=== PATIENT | female | born 1950 | race Caucasian/White ===

== ENCOUNTER 2019-07-02 13:52 | Emergency (ER) | payer OTHER, MEDICARE ==
[~2019-07-02] VITALS: Ht 161.3 cm; Wt 68.2 kg
[~2019-07-02 13:52] MED LIST: CALC-674 PO; CELE-193 PO; ERGO400C PO; FRONT WHEELED WALKER; LORA1TAB PO; MULT-1179 PO; NORCO10T PO; PREG75CA30 PO; SUMA25TA35 PO; TIZA4CAP6 PO; TRAZ50TA54 PO; VITC500T PO; ZOC40T PO
[2019-07-02] MEDS ORDERED: ketorolac tromethamine 15mg/ml inj. IM ONE (15:35)
[2019-07-02] MEDS ORDERED: METH-360 PO (15:37)
[2019-07-02 16:02] VITALS: BP 115/76
== END 2019-07-02 16:04 | disposition home or self-care (01) ==
LOC: ER 13:53
DX: S16.1XXA Strain of muscle, fascia and tendon at neck level, initial encounter (principal); S29.012A Strain of muscle and tendon of back wall of thorax, initial encounter; G89.29 Other chronic pain; Z71.1 Person with feared health complaint in whom no diagnosis is made; Z90.710 Acquired absence of both cervix and uterus; Z79.899 Other long term (current) drug therapy; V49.88XA Car occupant (driver) (passenger) injured in other specified transport accidents, initial encounter; Y93.89 Activity, other specified; Y92.89 Other specified places as the place of occurrence of the external cause; Y99.9 Unspecified external cause status
CPT/HCPCS: 72040; 72070; 96372; 99283; J1885

== ENCOUNTER 2021-01-16 11:34 | Emergency (ER) | payer MEDICARE, MEDICAID ==
[~2021-01-16] VITALS: Ht 157.5 cm; Wt 70.9 kg
[~2021-01-16 11:34] MED LIST changes: +METH-360 PO
[2021-01-16 12:34] VITALS: BP 110/69
[2021-01-16] MEDS ORDERED: ketorolac tromethamine 15mg/ml inj. IV ONE (13:20)
== END 2021-01-16 14:30 | disposition home or self-care (01) ==
LOC: ER 11:34
DX: S80.02XA Contusion of left knee, initial encounter (principal); M25.562 Pain in left knee; G89.29 Other chronic pain; Z87.11 Personal history of peptic ulcer disease; Z90.710 Acquired absence of both cervix and uterus; Z98.890 Other specified postprocedural states; Z79.899 Other long term (current) drug therapy; W18.40XA Slipping, tripping and stumbling without falling, unspecified, initial encounter; Y93.01 Activity, walking, marching and hiking; Y92.89 Other specified places as the place of occurrence of the external cause; Y99.8 Other external cause status
CPT/HCPCS: 73564; 96374; 99283; J1885

== ENCOUNTER 2021-02-11 11:25 | Emergency (ER) | payer MEDICARE, MEDICAID ==
[~2021-02-11] VITALS: Ht 160 cm; Wt 70.5 kg
[2021-02-11 13:15] VITALS: BP 114/80
[2021-02-11] MEDS ORDERED: HYDROcodone/acetaminophen 10/325mg tab PO ONE (14:10)
[2021-02-11] MEDS ORDERED: HYDR-3972 PO (15:05)
== END 2021-02-11 15:37 | disposition home or self-care (01) ==
LOC: ER 11:25
DX: S52.124A Nondisplaced fracture of head of right radius, initial encounter for closed fracture (principal); S80.02XA Contusion of left knee, initial encounter; M19.90 Unspecified osteoarthritis, unspecified site; G89.29 Other chronic pain; F17.200 Nicotine dependence, unspecified, uncomplicated; Z90.710 Acquired absence of both cervix and uterus; Z87.11 Personal history of peptic ulcer disease; Z79.899 Other long term (current) drug therapy; W01.0XXA Fall on same level from slipping, tripping and stumbling without subsequent striking against object, initial encounter; Y93.89 Activity, other specified; Y92.89 Other specified places as the place of occurrence of the external cause; Y99.8 Other external cause status
CPT/HCPCS: 29105; 73080; 73110; 73564; 99284

== ENCOUNTER 2021-02-14 12:20 | Emergency (ER) | payer MEDICARE, MEDICAID ==
[~2021-02-14] VITALS: Ht 158.8 cm; Wt 70.5 kg
[~2021-02-14 12:20] MED LIST changes: +HYDR-3972 PO
[2021-02-14] MEDS ORDERED: ketorolac tromethamine 15mg/ml inj. IM ONE (14:10)
[2021-02-14] MEDS ORDERED: CEPH-585 PO (15:44)
[2021-02-14 16:06] VITALS: BP 136/78
[2021-02-14 16:15] LABS: BASOPHILS % (AUTO) 0.7 % (0-1); EOSINOPHILS # (AUTO) 0.1 X10'3 (0-0.9); EOSINOPHILS % (AUTO) 1.1 % (0-6); HEMATOCRIT 39.7 % (35.0-45.0); HEMOGLOBIN 13.5 g/dl (12.0-16.0); LYMPHOCYTES # (AUTO) 1.8 X10'3 (1.1-4.8); LYMPHOCYTES % (AUTO) 28.4 % (21-51); MEAN CORPUSCULAR HEMOGLOBIN 29.9 PG (27.0-31.0); MEAN CORPUSCULAR HGB CONC 34.1 g/dL (33.0-36.5); MEAN CORPUSCULAR VOLUME 87.8 FL (78-98); MEAN PLATELET VOLUME 8.1 FL (7.4-10.4); MONOCYTES # (AUTO) 0.7 X10'3 (0-0.9); MONOCYTES % (AUTO) 10.9 % (2-12); NEUTROPHILS # (AUTO) 3.7 X10'3 (1.8-7.7); NEUTROPHILS % (AUTO) 58.9 % (42-75); PLATELET COUNT 255 X10'3 (140-440); RED BLOOD COUNT 4.52 X10'6 (4.20-5.60); RED CELL DISTRIBUTION WIDTH 13.4 % (11.5-14.5); WHITE BLOOD COUNT 6.3 X10'3 (4.5-11.0)
[2021-02-14 16:23] LABS: PARTIAL THROMBOPLASTIN TIME 29 SECONDS (22-32)
[2021-02-14 16:27] LABS: ALANINE AMINOTRANSFERASE 15 U/L (12-78); ALBUMIN/GLOBULIN RATIO 0.9 (1.1-1.5); ALKALINE PHOSPHATASE 94 IU/L (46-116); ANION GAP 4 (8-16); ASPARTATE AMINO TRANSFERASE 21 U/L (10-37); BILIRUBIN,TOTAL 0.6 MG/DL (0.1-1.0); BLOOD UREA NITROGEN 10 MG/DL (7-18); CALCIUM 8.4 MG/DL (8.5-10.1); CHLORIDE 105 MMOL/L (99-107); GLUCOSE 89 MG/DL (70-104); POTASSIUM 3.8 MMOL/L (3.5-5.1); SODIUM 140 MMOL/L (135-145); TOTAL CARBON DIOXIDE 30.6 MMOL/L (24-32); TOTAL PROTEIN 6.2 G/DL (6.4-8.2); eGFR > 90 ML/MIN
== END 2021-02-14 17:10 | disposition home or self-care (01) ==
LOC: ER 12:23
DX: L03.116 Cellulitis of left lower limb (principal); M79.605 Pain in left leg; M19.90 Unspecified osteoarthritis, unspecified site; G89.29 Other chronic pain; Z87.11 Personal history of peptic ulcer disease; Z90.710 Acquired absence of both cervix and uterus; Z98.890 Other specified postprocedural states; Z79.2 Long term (current) use of antibiotics; Z79.899 Other long term (current) drug therapy
CPT/HCPCS: 36415; 73590; 80053; 85025; 85610; 85730; 93971; 96372; 99285; J1885

== ENCOUNTER 2023-10-02 10:20 | Outpatient (CLI) | payer MEDICARE, MEDICAID ==
[2023-10-02] VITALS (21 sets, daily range): BP systolic 74–106; BP diastolic 40–67; PULSE 68–98
[~2023-10-02 10:20] MED LIST changes: +FLO0.1T PO; -HYDR-3972 PO
== END 2023-10-02 23:59 | disposition home or self-care (01) ==
LOC: CARD DIAG 10:20
PROVIDERS: ATTEND Family Medicine
DX: R42 Dizziness and giddiness (principal); D50.0 Iron deficiency anemia secondary to blood loss (chronic)
CPT/HCPCS: 93660

== ENCOUNTER 2024-09-15 09:53 | Emergency (ER) | payer MEDICARE, MEDICAID ==
[~2024-09-15] VITALS: Ht 160 cm; Wt 59.3 kg
[2024-09-15] MEDS: ipratropium/albuterol 3ml nebule NEB STA (11:44)
[2024-09-15 11:45] VITALS: PULSE 70; RESP 18; O2SAT 95
[2024-09-15 11:50] VITALS: PULSE 64; RESP 18; O2SAT 99
[2024-09-15 11:52] LABS: BASOPHILS % (AUTO) 0.8 % (0-1); EOSINOPHILS % (AUTO) 0.2 % (0-6); HEMATOCRIT 43.9 % (35.0-45.0); HEMOGLOBIN 15.1 g/dl (12.0-16.0); MEAN CORPUSCULAR HEMOGLOBIN 29.3 PG (27.0-31.0); MEAN CORPUSCULAR HGB CONC 34.4 g/dL (33.0-36.5); MEAN CORPUSCULAR VOLUME 85.2 FL (78-98); MEAN PLATELET VOLUME 8.7 FL (7.4-10.4); MONOCYTES # (AUTO) 0.3 X10'3 (0-0.9); MONOCYTES % (AUTO) 13.5 % (2-12); NEUTROPHILS # (AUTO) 1.1 X10'3 (1.8-7.7); NEUTROPHILS % (AUTO) 43.5 % (42-75); PLATELET COUNT 121 X10'3 (140-440); RED BLOOD COUNT 5.15 X10'6 (4.20-5.60); RED CELL DISTRIBUTION WIDTH 14.2 % (11.5-14.5); WHITE BLOOD COUNT 2.5 X10'3 (4.5-11.0)
[2024-09-15 12:04] LABS: APTT 26 SECONDS (22-32)
[2024-09-15 12:09] LABS: ALANINE AMINOTRANSFERASE 20 U/L (12-78); ALBUMIN 3.1 G/DL (3.4-5.0); ALBUMIN/GLOBULIN RATIO 0.9 (1.1-1.5); ALKALINE PHOSPHATASE 57 IU/L (46-116); ANION GAP 2 (8-16); ASPARTATE AMINO TRANSFERASE 29 U/L (10-37); BILIRUBIN,TOTAL 0.4 MG/DL (0.1-1.0); BLOOD UREA NITROGEN 13 MG/DL (7-18); BUN/CREATININE RATIO 24.1 (10.0-20.0); CALCIUM 8.1 MG/DL (8.5-10.1); CHLORIDE 100 MMOL/L (99-107); CREATININE 0.54 MG/DL (0.40-0.90); GLUCOSE 119 MG/DL (70-104); POTASSIUM 3.2 MMOL/L (3.5-5.1); SODIUM 137 MMOL/L (135-145); TOTAL CARBON DIOXIDE 34.6 MMOL/L (24-32); TOTAL PROTEIN 6.5 G/DL (6.4-8.2); eCRCL 77 ML/MIN; eGFR > 90 ML/MIN
[2024-09-15 12:15] LABS: BILIRUBIN,URINE NEGATIVE (Neg); CLARITY,URINE SLIGHTLY CLOUDY (Clear); COLOR,URINE YELLOW (Yellow); GLUCOSE, URINE NEGATIVE (Neg); KETONES,URINE NEGATIVE (Neg); LEUKOCYTE ESTERASE ,URINE NEGATIVE (Neg); NITRITES, URINE NEGATIVE (Neg); OCCULT BLOOD,URINE TRACE-INTACT (Neg); PROTEIN,URINE 100 mg/dl (Neg); UROBILINOGEN,URINE 0.2 E.U/dL (0.2-1.0)
[2024-09-15 12:18] LABS: PRO BRAIN NATRIURETIC PEPTIDE 34 PG/ML (0-125)
[2024-09-15 12:19] LABS: UA COLLECTION TYPE VOIDED
[2024-09-15 12:22] LABS: BACTERIA,URINE FEW /HPF (Neg); RBC,URINE 0-2 /HPF (0-2); SQUAMOUS EPITHELIAL CELL,UR NONE SEEN /LPF (FEW); WBC,URINE 0-4 /HPF (0-4)
[2024-09-15 12:40] LABS: TOTAL CELLS COUNTED 100
[2024-09-15 12:41] LABS: LARGE PLATELETS FEW; PLATELET ESTIMATE DECREASED
[2024-09-15] MEDS ORDERED: ALBU8HFA INH (13:35)
[2024-09-15] MEDS ORDERED: PRED20TA PO (13:35)
[2024-09-15] MEDS ORDERED: PROM25TA14 PO (13:35)
[2024-09-15] MEDS: dexamethasone sod phosphate 10mg/ml inj PO STA (13:51)
[2024-09-15] MEDS: proMETHazine 25mg tablet PO ONE (13:52)
[2024-09-15 14:02] VITALS: BP 124/68; PULSE 78; RESP 16; TEMP 98.9; O2SAT 98
== END 2024-09-15 14:03 | disposition home or self-care (01) ==
LOC: ER 09:53
DX: B34.9 Viral infection, unspecified (principal); J44.9 Chronic obstructive pulmonary disease, unspecified; M19.90 Unspecified osteoarthritis, unspecified site; F17.210 Nicotine dependence, cigarettes, uncomplicated; Z90.710 Acquired absence of both cervix and uterus; Z20.822 Contact with and (suspected) exposure to COVID-19
CPT/HCPCS: 71045; 80053; 81001; 83880; 84484; 85007; 85025; 85610; 85730; 87502; 87503; 87811; 93005; 94640; 99285; J1100; Q0169; 94760

== ENCOUNTER 2025-06-13 12:54 | Inpatient (IN) | payer MEDICARE, MEDICAID ==
[~2025-06-13] VITALS: Ht 160 cm; Wt 59.1 kg
[~2025-06-13 12:54] MED LIST changes: -FLO0.1T PO; +FLUD0.1T2 PO; +[UNRECOGNIZED DRUG - CODE] PO
--- NOTE | 2025-06-13 13:10 | ELECTROCARDIOGRAPH REPORT ---
[facility] Test Date: 2025-06-13 Test Time: 13:07:37 Pat Name: AMARJIT BRICENO Department: [facility]-ER Patient ID: [id number] Room: Gender: F Coating Technician: : 1950 Requested By: ELIANE BELTRÁN Order Number: [id number] Reading MD: Dr. Eliane Beltrán Measurements Intervals [place] Rate: 97 P: 69 [place]: 139 QRS: 211 QRSD: 108 T: 48 QT: 366 QTc: 465 Interpretive Statements Sinus rhythm Low voltage, precordial leads Probable right ventricular hypertrophy Baseline wander in lead(s) I,II,aVR Electronically Signed On 06-13-2025 14:36:[address] Eliane Beltrán Please click the below link to view image of tracing.
[2025-06-13 13:29] LABS: RED CELL DISTRIBUTION WIDTH 13.9 % (11.5-14.5)
[2025-06-13 13:31] LABS: MEAN PLATELET VOLUME 8.7 FL (7.4-10.4)
[2025-06-13 13:40] LABS: CREATININE 1.02 MG/DL (0.40-0.90); PRO BRAIN NATRIURETIC PEPTIDE 447 PG/ML (0-125); TOTAL CARBON DIOXIDE 30.6 MMOL/L (24-32); eCRCL 41 ML/MIN; eGFR 53 ML/MIN
--- NOTE | 2025-06-13 13:54 | RADIOLOGY REPORT ---
CHEST RADIOGRAPH Indication: CP Technique: Single frontal view of the chest was obtained Comparison: DI CHEST,SINGLE VIEW on DOS: 09/15/24, DI CHEST,SINGLE VIEW on DOS: 07/19/23 FINDINGS: Lines and Tubes: None Lungs: No focal consolidation. Senescent changes of the lungs. Surgical clips are noted over the left axillary region and overlying the left lower lung zone. Pleura: No effusion. No pneumothorax. Cardiomediastinal contours: Unremarkable Bones: No acute osseous abnormality. IMPRESSION: No acute cardiopulmonary disease.
[2025-06-13 14:02] LABS: GIANT PLATELET FEW; LARGE PLATELETS FEW; PLATELET ESTIMATE NORMAL
--- NOTE | 2025-06-13 15:41 | Physician Documentation ---
History of Present Illness ~ Chief Complaint: Chest Pain Stated Complaint: CHEST PAIN Time Seen by MD: 14:04 OK to notify your PCP?: Yes Primary Medical Doctor: AURA Source: patient, RN/ Mode of Arrival: POV, Dropped Off HPI Patient is seen today with complaints of acute onset of chest pain earlier this morning. Patient states he had similar episode of pain little over year ago and she was referred to Dr. Hanks who did a workup and they did not find any cardiovascular disease requiring stent placement or significant treatment. Patient denies any history of stroke or blood clots but states she does have chest pain and a history of prediabetes and has no other concern or complaint at this time. Medication Reconciliation Allergies: Coded Allergies: No Known Allergies (Unverified , 06/13/25) Scheduled Ascorbic Acid* (Vitamin C*), 1 TAB PO DAILY, (Reported) Calcium Citrate/Vitamin D3 (Gnp Calcium Citrate-Vit D Cplt), 2 TAB PO TID, (Reported) Cholecalciferol (Vitamin D3) (Vitamin D), 400 UNITS PO DAILY, (Reported) Multivitamins,Therapeutic* (Theragran-M*), 1 EACH PO DAILY, (Reported) Simvastatin* (Zocor*), 40 MG PO HS, (Reported) Trazodone Hcl* (Desyrel*), 50 MG PO HS, (Reported) Scheduled PRN Celecoxib* (Celebrex*), 200 MG PO DAILY PRN, (Reported) Hydrocodone Bit/Acetaminophen 10/325 MG* ([place] 10/325 MG*), 1 TAB PO TID PRN for pain, (Reported) Lorazepam* (Ativan*), 1 MG PO BID PRN, (Reported) Sumatriptan Succinate* (Imitrex Tab*), 100 MG PO DAILY PRN for headache, (Reported) Discontinued Medications Fludrocortisone Acetate (Florinef), 0.1 MG PO BID Discontinued Reason: patient no longer taking Methocarbamol (Robaxin-750), 1 TAB PO HS Discontinued Reason: patient no longer taking Pregabalin* (Lyrica*), 75 MG PO BID, (Reported) Discontinued Reason: patient no longer taking Tizanidine Hcl* (Tizanidine Hcl*), 2 MG PO Q6H PRN, (Reported) Discontinued Reason: patient no longer taking Durable Medical Equipment [Front Wheeled Walker], (DME) Past Medical History Past Medical History: COPD, Peptic Ulcer Disease, Arthritis, Chronic Back Pain Past Surgical History: hysterectomy, other Alcohol Use: Occasionally Drug Use: none Lives with: Alone Lives In: Home Occupation: employed Review of Systems Constitutional: Denies: chills, fever, weakness Eyes: Denies: pain, blurred vision ENT: Denies: ear pain, nose pain, throat pain, mouth pain Respiratory: Denies: cough, shortness of breath Cardiovascular: Denies: chest pain, palpitations Gastrointestinal: Denies: abdominal pain, nausea, vomiting Genitourinary: Denies: burning, dysuria Female Genitalia: Denies: vaginal discharge, pelvic pain Neurological: Denies: headache, dizziness Musculoskeletal: Denies: pain, swelling Integumentary: Denies: rash, lesions Allergic/Immunologic: Denies: hives, itching Hematologic/Lymphatic: Denies: no symptoms reported Psychiatric: Denies: depression, anxiety Physical Exam Vital Signs: Temperature: 97.9, Source: Oral, Heart Rate: 85, Respiratory Rate: 14, BP: 113/78, Pulse Oximetry: 96, Weight: 59.090 Oxygen Flow Rate: 0 Physical Exam General: Awake and Alert, no acute distress. HEENT: Conjunctiva pink, Sclera clear, Mucus Membranes moist. Neck: Supple without masses and tenderness. Resp: Unlabored. Lungs clear to auscultation bilaterally. Heart: Regular Rate and rhythm, normal S1 and S2 without murmur, rub or gallop. Abdomen: Soft and non tender no organomegaly Extremities: No cyanosis,clubbing or edema. Skin: Warm and Dry. Progress Results/Orders Results/Orders Orders - ELENO KEYES Hospitalist (06/13/25 15:36) Fill Out Med Reconciliation (06/13/25 15:36) Vital Signs 06/13/25 06/13/25 06/13/25 06/13/25 12:58 14:15 14:48 16:00 Temp 97.9 Pulse 103 85 82 Resp 16 16 14 13 B/P (MAP) 95/66 113/78 (90) 97/76 (83) Pulse Ox 97 96 98 O2 Flow Rate 0 0 0 Laboratory Tests Test 06/13/25 13:08 10/27/25 15:18 White Blood Count 6.8 Red Blood Count 5.32 Hemoglobin 15.8 Hematocrit 46.5 H Mean Corpuscular Volume 87.3 Mean Corpuscular Hemoglobin 29.7 Mean Corpuscular Hemoglobin Concent 34.0 Red Cell Distribution Width 13.9 Platelet Count 222 Mean Platelet Volume 8.7 Neutrophils (%) (Auto) 64.2 Lymphocytes (%) (Auto) 27.0 Monocytes (%) (Auto) 7.7 Eosinophils (%) (Auto) 0.3 Basophils (%) (Auto) 0.8 Neutrophils # (Auto) 4.3 Lymphocytes # (Auto) 1.8 Monocytes # (Auto) 0.5 Eosinophils # (Auto) 0.0 Basophils # (Auto) 0.1 CBC Comment Platelet Estimate Normal Large Platelets Few Giant Platelets Few Red Blood Cell Morphology Normal Basophilic Stippling Sodium Level 138 Potassium Level 3.2 L Chloride Level 101 Carbon Dioxide Level 30.6 Anion Gap 6 L Blood Urea Nitrogen 18 Creatinine 1.02 H Estimated GFR/1.73 m2 53 BUN/Creatinine Ratio 17.6 Glucose Level 123 H Calcium Level 9.3 Troponin I High Sensitivity 9 10 Pro-B-Type Natriuretic Peptide 447 H Albumin 3.4 Chemistry Comments Troponin I High Sens Percent Delta 11 Troponin I Hi Sens Absolute Change 1 Heart Score: Heart Score Response (Comments) Value History Moderate Suspicious 1 EKG Normal 0 Age >65 2 Risk Factors 1 or 2 risk factors 1 Troponin Normal limit 0 Total 4 Medical Decision Making Additional information obtaine: N/A Findings Patient is seen today with complaints of acute onset of chest pain earlier this morning. Patient states he had similar episode of pain little over year ago and she was referred to Dr. Hanks who did a workup and they did not find any cardiovascular disease requiring stent placement or significant treatment. Patient denies any history of stroke or blood clots but states she does have chest pain and a history of prediabetes and has no other concern or complaint at this time. Patient does have elevated pro BNP but normal troponins. I did consult with hospitalist who agreed to admit the patient for further observation and eval and treatment. Patient will be admitted to the hospital. Heart Score: 4 Differential Dx:Considerations: Include: angina, aortic dissection, chest wall pain, CHF, esophageal reflux/spasm, gastritis, myocardial infarction Departure Disposition: 01 HOME / SELF CARE / HOMELESS Admitted to Inpatient Unit: to hospitalist Admission Level of Care: Med/Surg with Tele Impression: Primary Impression: Chest pain Qualified Codes: R07.9 - Chest pain, unspecified Condition: Stable Discharge Instructions: Nonspecific Chest Pain, Adult Additional Instructions: Patient does have elevated pro BNP but normal troponins. I did consult with hospitalist who agreed to admit the patient for further observation and eval and treatment. Patient will be admitted to the hospital. Referrals: NO PRIMARY CARE PROVIDER (PCP) Signature Scribe Signature: No Scribe Attestation: No scribe ELENO KEYES PAC Jun 13, 2025 15:41
[2025-06-13] MEDS ORDERED: magnesium sulf-water 2g/50mL 50 ML IV PRN (16:05)
[2025-06-13] MEDS ORDERED: aminophylline 250mg/10ml inj. IV PRN (16:05)
[2025-06-13] MEDS ORDERED: mag hydrox/Alum hydrox/simeth 30ml oral suspension PO PRN (16:05)
[2025-06-13] MEDS ORDERED: ondansetron/PF 4mg/2ml inj IV PRN (16:05)
[2025-06-13] MEDS ORDERED: potassium Cl 40MEQ/1/2NS 520ml 520 ML IV PRN (16:05)
[2025-06-13] MEDS ORDERED: magnesium sulf-water 4G/100mL 100 ML IV PRN (16:05)
[2025-06-13] MEDS ORDERED: bisacodyl 10mg suppository rectal RC PRN (16:05)
[2025-06-13] MEDS ORDERED: potassium Cl 20 mEq SR tablet PO PRN (16:05)
[2025-06-13] MEDS ORDERED: metoprolol tartrate 1mg/ml inj IV PRN (16:05)
[2025-06-13] MEDS: PERFLUTREN PROTEIN-A MICROSPHR (Optison) 0.22 MG/ML 3ML VIAL IV ONE (16:45)
[2025-06-13] MEDS: nicotine 21mg patch - 24 hr TD ONE (17:03)
--- NOTE | 2025-06-13 17:06 | HISTORY AND PHYSICAL ---
History & Physical Providers to CC ~ History of Present Illness Reason for Admit\Complaint: Chest pain eval for AL History of Present Illness This is a 74-year-old female who has a history of breast cancer status post chemotherapy and radiation and lumpectomy and smokes a pack of cigarettes a day has a family history with a father with a myocardial infarction presents to the ED with substernal chest pain occurring few hours prior to arrival to ED. The patient points to the center of her chest and describes substernal chest pain that lasted 30-40 minutes the patient also was dizzy and felt hot. The pain spontaneously resolved. The patient denies any shortness of breath, diaphoresis or radiation of the pain. Note that the patient has a history of hypotension and at baseline her blood pressure was 90/60 and often gets dizzy and at the time prior to the chest pain the patient had noticed that she was dizzy and placed her head between her legs for which she does when she gets dizzy and these episodes resolve. Allergies: Coded Allergies: No Known Allergies (Unverified , 06/13/25) Home Medications Home Medications Active [Front Wheeled Walker] Reported Vitamin C* (Ascorbic Acid) 500 Mg Tablet 1 Tab PO DAILY Vitamin D (Cholecalciferol (Vitamin D3)) 400 Unit Capsule 400 Units PO DAILY Imitrex Tab* (Sumatriptan Succinate) 25 Mg Tablet 100 Mg PO DAILY PRN IF 1ST DOSE INEFFECTIVE MAY REPEAT DOSE AFTER 2 HOURS Gnp Calcium Citrate-Vit D Cplt (Calcium Citrate) 1 Each Tablet 2 Tab PO TID Theragran-M* (Multivitamins Therapeutic) 1 Each Tablet 1 Each PO DAILY Zocor* (Simvastatin) 40 Mg Tablet 40 Mg PO HS Desyrel* (Trazodone HCl) 50 Mg Tablet 50 Mg PO HS Ativan* (Lorazepam) 1 Mg Tablet 1 Mg PO BID PRN Celebrex* (Celecoxib) 100 Mg Capsule 200 Mg PO DAILY PRN [place] 10/325 MG* (Acetaminophen/Hydrocodone Bitart) 10 Mg/325 Mg Tablet 1 Tab PO TID PRN Not to combine with alcohol, not to drive or operate machinery Past Medical History Past Medical History Depression. Anxiety. Dyslipidemia. Insomnia. Left-sided Breast cancer status post chemotherapy and radiation therapy. Hypotension COPD Syncope Pneumonia Past Surgical History Surgical History Comment Left-sided lumpectomy Hysterectomy 2 sections Ankle surgery Small bowel resection 11 inches as a child Right radial head fracture Fibular fracture Tibial fracture L5 fracture Family History Family History: FH: depression FATHER MOTHER FH: myocardial infarction FATHER Past Social History Social History Comment Smokes a pack of cigarettes a day, occasional alcohol intake, denies any illicit drug use. Full code status ROS ROS Except for positives in the HPI the rest of the 14 point review systems is negative Exam Vitals: Vital Signs Date Time Temp Pulse Resp B/P (MAP) Pulse Ox O2 Delivery O2 Flow Rate FiO2 06/13/25 16:00 82 13 97/76 (83) 98 0 06/13/25 12:58 97.9 General: Gen. No acute distress alert and oriented 4 Lungs clear to ascultation bilaterally, no wheezes rales or rhonchi appreciated Heart normal sinus rhythm no murmurs rubs or clicks noted Abdomen soft nontender bowel sounds are normoactive Lower extremities no clubbing cyanosis, nor edema appreciated bilaterally Diagnostic Data Last Recorded Lab Results: 06/13/25 1308 06/13/25 1308 Counseling Services Smoking & Tobacco Cessation: > 10 Minutes Advance Care Planning Advanced Care plannin - 30 Minutes Problems: (1) Chest pain Additional Plan # chest pain eval for AL Serial troponins are negative Admitted on a classroom monitor Lexiscan stress test is ordered Echocardiogram NPO after midnight Fasting lipid panel # [id number] and chronic # hypotension- baseline blood pressures in the 90s over 50s Echocardiogram Orthostatic vital signs per shift On a classroom monitor # anxiety/depression Awaiting med reconciliation # hypertension Awaiting med reconciliation # hypokalemia Potassium replacement protocol # Tobacco use disorder-I spent 12 minutes discussing smoking cessation with the patient including the risk of continuing smoke: Lung cancer, stroke, heart attack, poor wound healing, increased in facial wrinkling, cigarette smoke also leads a foul smell on clothing and fabrics, risk of MRSA skin infections. The expense of smoking cigarettes and how cigarettes have been scientifically engineered to be as addictive as humanly possible. The patient has accepted a 21 mg nicotine patch. # DVT prophylaxis SCDs SQ Lovenox I spent a total of 17 minutes on reviewing various resuscitative measures/ ACP with the patient at the time of admission. The patient has decided on a full code status Date of Service: Jun 13, 2025 Billing Provider: ROBACK,IVANIA T DO Common Visit Codes: 50769-ODLUBSO INP/OBS CARE (HIGH) Secondary Visit Codes: 87383-SCROS CHNG SMOKING >10MIN, 18345-ZQLTOSIX CARE PLAN 30 MINUTES IVANIA HSU DO Jun 13, 2025 17:06
--- NOTE | 2025-06-13 18:26 | CARDIOLOGY REPORT ---
APPROVED REPORT EXAM: Comprehensive 2D, Doppler, and color-flow Echocardiogram. Patient Location: ER 7 Blood Pressure: 97/60 mmHg Heart Rate: 72 bpm Rhythm: SINUS Indications CHEST PAIN ELEVATED PROBNP (447) COPD DIZZINESS Television Production Assistant: Mario Hanks MD Previous echo: 07/20/23 [facility] (EF 55-60%, trace MR, trace TR) 2D Dimensions RVDd 3.0 cm LA Diam 4.9 cm IVSd 1.1 (0.7-1.1cm) LVDd 4.0 cm PWd 0.8 (0.7-1.1cm) IVSs 1.3 (0.8-1.2cm) LVDs 2.7 (2.5-4.0cm) PWs 1.4 (0.8-1.2cm) LVOT Diameter 2.10 (1.8-2.4cm) LVEF(%) 62.3 (>50%) Ao Asc Diam. 3.13 cm FS (%) 33.1 % SV 44.0 ml CO 3.0 L/min M-Mode Dimensions Left Atrium(MM) 2.79 (2.5-4.0cm) IVSd 1.06 (0.7-1.1cm) LVDd 3.78 (4.0-5.6cm) Aortic Root 2.85 (2.2-3.7cm) PWd 0.86 (0.7-1.1cm) Aortic Cusp Exc 1.67 (1.5-2.0cm) IVSs 1.38 cm MV EPSS 0.5 (<0.5cm) LVDs 2.43 (2.0-3.8cm) FS (%) 36 % PWs 1.35 cm ESV(Teich) 20.9 ml LVEF(%) 66 (>50%) Biplane 2D LA Volumes LA ESV Index 16.27 mL/m2 Aortic Valve AoV Peak Gilbert. 163.7 cm/s AoV VTI 27.3 cm AO Peak GR. 10.7 mmHg AO Mean GR. 6 mmHg LVOT VTI 22.55 cm LVOT Peak Gilbert. 132.1 cm/s YESSENIA(VTI)/BSA 2.85 cm2/m2 YESSENIA (VTI) 2.85 cm2 AV DI 0.83 % Mitral Valve MV E Velocity 63.4 cm/s MV Peak Gr. 3 mmHg MV DECEL TIME 356 ms MV A Velocity 85.4 cm/s MV PHT 56 ms E/A Ratio 0.7 MVA (PHT) 3.93 cm2 MV VMax 85.5 cm/s TDI Medial E' P. V 9.02 cm/s E/Medial E' 7.0 Tricuspid Valve TR P. Velocity 221 cm/s TR Peak Gr. 20 mmHg Pulmonary Vein S1 Velocity 55.3 cm/s D2 Velocity 32.3 cm/s PVa Velocity 67.7 cm/s PVa Duration 92 msec LEFT VENTRICLE Normal LV size and wall thickness. Overall systolic function is normal. LVEF is 60-65%. RIGHT VENTRICLE RV is normal size and function. ATRIA LA size is normal. AORTIC VALVE Trileaflet AV appears mildly sclerotic without stenosis or insufficiency. MITRAL VALVE Mild MV annular calcification and leaflet thickening without stenosis. Trace regurgitation. TRICUSPID VALVE TV appears structurally normal with trace regurgitation. PULMONIC VALVE Normal PV without stenosis, mild insufficiency. GREAT VESSELS Aortic root is normal in size. Ascending aorta is normal in size. PERICARDIUM Normal pericardium. No effusion. Other Information Study Quality: Adequate Conclusion Normal LV size and wall thickness. Overall systolic function is normal. LVEF is 60-65%. RV is normal size and function. LA size is normal. Trileaflet AV appears mildly sclerotic without stenosis or insufficiency. Mild MV annular calcification and leaflet thickening without stenosis. Trace regurgitation. TV appears structurally normal with trace regurgitation. Normal PV without stenosis, mild insufficiency. Normal pericardium. No effusion.
[2025-06-13] MEDS: enoxaparin 40mg/0.4ml syringe SQ SCH (19:45)
[2025-06-13] MEDS: docusate sod 100mg capsule PO SCH (19:45)
[2025-06-13 20:00] VITALS: BP_SYST 100; BP_SYST 107; BP_SYST 86; BP_DIAS 61; BP_DIAS 67; BP_DIAS 70; PULSE 77; PULSE 80; PULSE 96
[2025-06-13] MEDS: K and/or MAG REPLACEMENT MC SCH (20:00)
[2025-06-13 20:21] VITALS: RESP 13; RESP 15; O2SAT 93; O2SAT 98
[2025-06-13 22:00] VITALS: BP 122/80; PULSE 74; RESP 13; TEMP 97.3; O2SAT 93
[2025-06-13] MEDS: potassium Cl 20 mEq SR tablet PO PRN (22:26)
[2025-06-13] MEDS: normal saline 500ml IV soln 500 ML IV ONE (23:17)
[2025-06-14] VITALS (16 sets, daily range): BP systolic 78–137; BP diastolic 53–79; PULSE 68–96; RESP 14–25; TEMP 97.9–98.7; O2SAT 93–98
[2025-06-14 04:42] LABS: MEAN PLATELET VOLUME 8.6 FL (7.4-10.4); RED CELL DISTRIBUTION WIDTH 13.8 % (11.5-14.5)
[2025-06-14 04:50] LABS: CHOL/HDL RATIO 3.1 (0.00-4.99); CREATININE 0.76 MG/DL (0.40-0.90); LDL CHOLESTEROL 122 MG/DL (50-100); TOTAL CARBON DIOXIDE 28.8 MMOL/L (24-32); eCRCL 55 ML/MIN; eGFR 75 ML/MIN
[2025-06-14] MEDS: nicotine 21mg patch - 24 hr TD SCH (08:24)
[2025-06-14] MEDS: regadenoson 0.4mg/5ml syringe IV PRN (09:10)
--- NOTE | 2025-06-14 10:23 | RADIOLOGY REPORT ---
Reason for study/Clinical History: Chest pain evaluate for mi Comparison Study: None Myocardial Perfusion Study with SPECT Technique: The patient received an intravenous injection of 8.2 mCi of technetium-99m Sestamibi while at rest. After a short delay, SPECT tomographic images of the heart were obtained. The patient then went to the stress lab where they received an intravenous Lexiscan utilizing standard protocol. 34.2 mCi of technetium-99m Sestamibi was injected intravenously immediately after the start of the infusion. Gated SPECT tomographic images of the heart were acquired and processed. Findings: Rotating planar images show no significant attenuation artifact. The left ventricular size is within normal limits. Stress tomographic images demonstrate normal perfusion. Resting tomographic images demonstrate a similar pattern. Gated portion of the study shows normal wall motion and myocardial thickening. The left ventricular ejection fraction is 54%. (normal greater than 50%) Impression: Normal left ventricular size, wall motion, and function, without evidence of infarction or of myocardium at ischemic risk. The left ventricular ejection fraction is 54%.
--- NOTE | 2025-06-14 11:03 | PROGRESS NOTE ---
Daily Progress Note Providers to CC ~ Antibiotic Timeout Antibiotic Ordered?: No Subjective No acute events overnight. Patient examined at bedside. No new complaints, not in acute distress. Patient denies chest pain, sob, palpitations, abdominal pain, n/v/d. Vss, labs unremarkable. Positive orthostatic vitals. Lexiscan negative. Tele sinus 70s. LVEF 60-65%, no significant valvular heart disease. Objective Vital Signs Date Time Temp Pulse Resp B/P (MAP) Pulse Ox O2 Delivery O2 Flow Rate FiO2 06/14/25 09:14 93 16 124/68 96 Room Air 06/14/25 07:39 98.1 06/13/25 16:00 0 Result Diagram: 06/14/25 0430 06/14/25 0418 Physical Exam General: Generalized weakness, A&Ox 3, NAD HEENT: Normocephalic, PERRLA Neck: Supple, trachea midline, no JVD Chest: Clear to auscultation bilaterally Cardiovascular: RRR, S1&S2 GI: Soft and nontender Extremities: No cyanosis/clubbing/or edema TICKETER: CN II-XII intact, no focal deficits Musculoskeletal: No paraspinal muscle tenderness, no muscle spasm Skin: Warm and intact Problem\Assessment\Plan Problems/Diagnosis: (1) Chest pain Assessment & Plan ACS- ruled out Near-syncope, reoccurrence and chronic Hypotension 06/14: orthostatic vitals positive, Lexiscan negative, Tele sinus 70s, LVEF 60- 65%, no significant valvular heart disease, carotid US shows mild atherosclerotic disease with no hemodynamically significant stenosis Anxiety/depression Hx HTN hypokalemia Tobacco use disorder -K/Mg replacement protocol # Tobacco use disorder DVT prophylaxis: SCDs, Lovenox Date of Service: Jun 14, 2025 Billing Provider: EVANGELINA RODRIGUEZ Common Visit Codes: [id number] INP/OBS CARE(HIGH) Problem Qualifiers (1) Chest pain: Qualified Codes: R07.9 - Chest pain, unspecified EVANGELINA RODRIGUEZ Jun 14, 2025 11:03
[2025-06-14] MEDS: normal saline 1000ml 1,000 ML IV SCH (11:53)
[2025-06-14] MEDS: cholecalciferol (vitamin D3) 400 unit (10mcg) tablet PO SCH (11:54)
[2025-06-14] MEDS: calcium carbonate/vitamin D3 tablet PO SCH (12:03)
--- NOTE | 2025-06-14 12:49 | VASCULAR REPORT ---
ULTRASOUND CAROTID DUPLEX BILATERAL REASON FOR EXAM: Dizziness. Syncope. COMPARISON: VASC VL CAROTID on DOS: 07/20/23, VL VENOUS on DOS: 02/14/21 TECHNIQUE: Using real-time freeze-frame technique with a high-frequency small parts transducer, multiple longitudinal and transverse sections were obtained. Simultaneous color flow Doppler imaging was performed. FINDINGS: Mild calcified and noncalcified plaques are present in both carotid bulbs and internal carotid arteries. Waveforms are normal. Flow is laminar throughout. Peak systolic velocities as well as ICA/CCA ratios are normal. Flow through the vertebral and external carotid arteries is antegrade bilaterally. PEAK SYSTOLIC VELOCITIES (cm/sec): RIGHT: CCA 65.8 Proximal ICA 55.6 Mid ICA 47.8 Distal ICA 69.6 ECA 98.1 ICA/CCA ratio 1.06 LEFT: CCA 70.9 Proximal ICA 66.3 Mid ICA 52.2 Distal ICA 56.5 ECA 73.1 ICA/CCA ratio 0.80 IMPRESSION: Mild atherosclerotic disease with no hemodynamically significant stenosis. Any narrowing is less than 50%. Measurement of carotid stenosis is based on velocity parameters that correlate the residual internal carotid diameter with that of the more distal vessel in accordance with the [place] Symptomatic Carotid Endarterectomy Trial (NASCET).
[2025-06-14] MEDS: normal saline 500ml IV soln 500 ML IV ONE (22:57)
[2025-06-15] MEDS ORDERED: PRAM0.129 PO (00:23)
[2025-06-15 04:09] VITALS: BP 129/80; PULSE 76; RESP 19; TEMP 98.5; O2SAT 93
[2025-06-15 07:00] VITALS: BP 136/80; PULSE 80; RESP 14; TEMP 98.2; O2SAT 94
[2025-06-15 07:00] LABS: MEAN PLATELET VOLUME 9.0 FL (7.4-10.4); RED CELL DISTRIBUTION WIDTH 13.7 % (11.5-14.5)
[2025-06-15] MEDS ORDERED: PANT40TA54 PO (07:03)
[2025-06-15 07:12] LABS: CREATININE 0.57 MG/DL (0.40-0.90); TOTAL CARBON DIOXIDE 25.4 MMOL/L (24-32); eCRCL 73 ML/MIN; eGFR > 90 ML/MIN
[2025-06-15] MEDS: multivitamins, therapeutics tablet PO SCH (08:05)
[2025-06-15] MEDS: pantoprazole 40mg Tablet.DR PO SCH (08:05)
[2025-06-15 08:19] VITALS: RESP 18
--- NOTE | 2025-06-15 10:31 | DISCHARGE SUMMARY ---
Discharge Summary Providers to CC ~ Discharge Summary Admission Diagnosis: Chest pain Hospital Course DATE OF ADMISSION: 06/13/25 DATE OF DISCHARGE: 06/15/25 Discharge Diagnosis\\Comment: Near-syncope, reoccurrence and chronic likely 2/2 orthostatic hypotension/hypotension Orthostatic hypotension Hypotension Prerenal TIAN 2/2 hypovolemia/vasomotor nephropathy- POA Dehydration- POA Chest pain likely 2/2 GERD ACS- ruled out Anxiety/depression Hx HTN hypokalemia Tobacco use disorder Operations\\Procedures: None Consultants: None Complications: None Condition on DC: Stable New Medications: Midodrine HCl (Midodrine HCl) 5 Mg Tablet 2 TAB PO TID PRN for hypotension for 30 Days, #180 TAB 0 Refills Take 2 tablets by mouth three times daily as needed for SBP<100 Pantoprazole Sodium (Pantoprazole Sodium) 40 Mg Tablet.dr 40 MG PO DAILY for 30 Days, #30 TAB.SR Continued Medications: Ascorbic Acid* (Vitamin C*) 500 Mg Tablet 1 TAB PO DAILY Calcium Citrate/Vitamin D3 (Gnp Calcium Citrate-Vit D Cplt) 1 Each Tablet 2 TAB PO TID Celecoxib* (Celebrex*) 100 Mg Capsule 200 MG PO DAILY PRN Cholecalciferol (Vitamin D3) (Vitamin D) 400 Unit Capsule 400 UNITS PO DAILY Hydrocodone Bit/Acetaminophen 10/325 MG* (B[place]ly 10/325 MG*) 10 Mg/325 Mg Tablet 1 TAB PO TID PRN for pain Not to combine with alcohol, not to drive or operate machinery Multivitamins,Therapeutic* (Theragran-M*) 1 Each Tablet 1 EACH PO DAILY Pramipexole Di-Hcl (Pramipexole Dihydrochloride) 0.125 Mg Tablet 1 TAB PO HS for 30 Days, #30 TAB 0 Refills Simvastatin* (Zocor*) 40 Mg Tablet 40 MG PO HS Sumatriptan Succinate* (Imitrex Tab*) 25 Mg Tablet 100 MG PO DAILY PRN for headache IF 1ST DOSE INEFFECTIVE MAY REPEAT DOSE AFTER 2 HOURS Trazodone Hcl* (Desyrel*) 50 Mg Tablet 50 MG PO HS Discontinued Medications: Lorazepam* (Ativan*) 1 Mg Tablet 1 MG PO BID PRN Discharge Summary: History of Present Illness From H&P: "This is a 74-year-old female who has a history of breast cancer status post chemotherapy and radiation and lumpectomy and smokes a pack of cigarettes a day has a family history with a father with a myocardial infarction presents to the ED with substernal chest pain occurring few hours prior to arrival to ED. The patient points to the center of her chest and describes substernal chest pain that lasted 30-40 minutes the patient also was dizzy and felt hot. The pain spontaneously resolved. The patient denies any shortness of breath, diaphoresis or radiation of the pain. Note that the patient has a history of hypotension and at baseline her blood pressure was 90/60 and often gets dizzy and at the time prior to the chest pain the patient had noticed that she was dizzy and placed her head between her legs for which she does when she g ets dizzy and these episodes resolve." Hospital Course Diagnostic findings were notable for profound hypotension with positive orthostatic hypotension, clinical signs of dehydration. Pertinent negative findings were negative Lexiscan, TTE revealing LVEF 60-65% with no significant valvular heart disease and normal pericardium, negative chest x-ray, carotid US revealing mild atherosclerotic disease with no hemodynamically significant stenosis. Patient was treated with intravenous fluids, PPI, and compression stockings. Patient did not experience further complications throughout the entire hospital stay and remained clinically and hemodynamically stable. Patient was seen and examined on the day of discharge. Patient no longer reports chest pain. On day of discharge, vss and labs unremarkable. Telemetry remains sinus in 70s. All labs, diagnostic workups, discharge plan discussed with patient in details during visit before discharge. All questions and concerns answered to the best of my professional knowledge. Patient ambulates independently without assistance. Patient is to be discharged to home to self and to follow-up with PCP within 2 weeks. Physical Exam General: A&Ox 3, NAD HEENT: Normocephalic, PERRLA Neck: Supple, trachea midline, no JVD Chest: Clear to auscultation bilaterally Cardiovascular: RRR, S1&S2 GI: Soft and nontender Extremities: No cyanosis/clubbing/or edema ICT CUSTOMER SUPPORT OFFICER: CN II-XII intact, no focal deficits Musculoskeletal: No paraspinal muscle tenderness, no muscle spasm Skin: Warm and intact *Problems/Diagnosis: (1) Chest pain Status: Acute Total Time Spent on D/C: > 30 Minutes Date of Service: Jun 15, 2025 Billing Provider: MICHAEL,EVANGELINA S [employer] MANAGER Common Visit Codes: 33155-CCW/OBS DISCH DAY >30min Problem Qualifiers (1) Chest pain: Qualified Codes: R07.9 - Chest pain, unspecified EVANGELINA RODRIGUEZ [employer] MANAGER Jun 15, 2025 10:31
[2025-06-15] MEDS ORDERED: MIDO5TAB4 PO (10:34)
== END 2025-06-15 10:02 | disposition home or self-care (01) | DRG 391 ==
LOC: ER 12:54 → ED HOLD 16:07 → PCU 3S 18:06
PROVIDERS: ADMIT Family Medicine; ATTEND Family Medicine
PROC: 4A02XM4 Measurement of Cardiac Total Activity, External Approach (ICD-10-PCS; principal; 2025-06-14)
PROC: 3E033HZ Introduction of Radioactive Substance into Peripheral Vein, Percutaneous Approach (ICD-10-PCS; 2025-06-14)
DX: K21.9 Gastro-esophageal reflux disease without esophagitis (principal); N17.0 Acute kidney failure with tubular necrosis; I95.1 Orthostatic hypotension; E87.6 Hypokalemia; F32.A Depression, unspecified; F41.9 Anxiety disorder, unspecified; F17.210 Nicotine dependence, cigarettes, uncomplicated; I10 Essential (primary) hypertension; G47.00 Insomnia, unspecified; J44.9 Chronic obstructive pulmonary disease, unspecified; E86.1 Hypovolemia; E78.5 Hyperlipidemia, unspecified; E86.0 Dehydration; Z79.899 Other long term (current) drug therapy; Z85.3 Personal history of malignant neoplasm of breast; Z92.21 Personal history of antineoplastic chemotherapy; Z92.3 Personal history of irradiation; Z90.710 Acquired absence of both cervix and uterus; Z87.11 Personal history of peptic ulcer disease
CPT/HCPCS: 36415; 71045; 78452; 80048; 80053; 80061; 83735; 83880; 84484; 85008; 85025; 87081; 93005; 93017; 93306; 93880; 96372; 99285; A6258; A9500; G0378; J1650; J2785; J7030; J7040